=== PATIENT | female | born 1955 | race Caucasian/White ===

== ENCOUNTER → 2016-04-28 | Outpatient (CLI) | payer BC ==
--- NOTE | 2016-04-29 08:46 | MM ---
Reason for exam: screening (asymptomatic). Last mammogram was performed 1 year ago. History: Patient is postmenopausal. Family history of breast cancer in maternal cousin. Physical Findings: A clinical breast exam by your physician is recommended on an annual basis and results should be correlated with mammographic findings. MG Screening Mammo w CAD Bilateral CC and MLO view(s) were taken. Prior study comparison: April 29, 2015, bilateral MG screening mammo w CAD. February 26, 2014, bilateral MG screening mammo w CAD. The breast tissue is heterogeneously dense. This may lower the sensitivity of mammography. Focal asymmetry upper inner right breast, 6.3 cm from nipple. This finding is changed when compared with previous exams. ASSESSMENT: Incomplete: need additional imaging evaluation, BI-RAD 0 RECOMMENDATION: Special view mammogram of the right breast. If lesion persists on supplemental views, image directed ultrasound is recommended. [facility] will attempt to contact patient to return for supplemental views and ultrasound if indicated.
== END | disposition home or self-care (01) ==
LOC: RADMAMWWP 10:36
PROVIDERS: ATTEND Internal Medicine
DX: Z12.31 Encounter for screening mammogram for malignant neoplasm of breast (principal)

== ENCOUNTER → 2016-04-29 | Outpatient (CLI) | payer BC ==
--- NOTE | 2016-04-30 08:06 | MM ---
Reason for exam: additional evaluation requested from abnormal screening. Last mammogram was performed less than 1 month ago. History: Patient is postmenopausal. Family history of breast cancer in maternal cousin at age 50. Physical Findings: Nurse did not find any significant physical abnormalities on exam. MG 3D Work Up W/Cad RT LM, spot compression MLO, and spot compression CC view(s) were taken of the right breast. Prior study comparison: April 28, 2016, bilateral MG screening mammo w CAD. April 29, 2015, bilateral MG screening mammo w CAD. The breast tissue is heterogeneously dense. This may lower the sensitivity of mammography. No suspicious mass on 3D. No significant new findings when compared with previous films. These results were verbally communicated with the patient and result sheet given to the patient on 04/29/16. ASSESSMENT: Benign, BI-RAD 2 RECOMMENDATION: Return to routine screening mammogram schedule for both breasts.
== END | disposition home or self-care (01) ==
LOC: RADMAMWWP 13:59
PROVIDERS: ATTEND Internal Medicine
DX: R92.8 Other abnormal and inconclusive findings on diagnostic imaging of breast (principal)
CPT/HCPCS: G0206; G0279

== ENCOUNTER → 2018-09-27 | Outpatient (CLI) | payer BC ==
--- NOTE | 2018-09-28 11:46 | MM ---
Reason for exam: screening (asymptomatic). Last mammogram was performed 1 year and 4 months ago. History: Patient is postmenopausal. Family history of breast cancer in maternal cousin at age 50. Physical Findings: A clinical breast exam by your physician is recommended on an annual basis and results should be correlated with mammographic findings. MG Screening Mammo w CAD Bilateral CC and MLO view(s) were taken. Prior study comparison: June 01, 2017, bilateral MG screening mammo w CAD. April 29, 2016, right breast MG 3d work up w/cad RT. The breast tissue is heterogeneously dense. This may lower the sensitivity of mammography. Benign appearing bilateral calcifications. No suspicious abnormality. No significant changes when compared with prior studies. ASSESSMENT: Benign, BI-RAD 2 RECOMMENDATION: Routine screening mammogram of both breasts in 1 year.
== END | disposition home or self-care (01) ==
LOC: RADMAMWWP 09:38
PROVIDERS: ATTEND Internal Medicine
DX: Z12.31 Encounter for screening mammogram for malignant neoplasm of breast (principal)
CPT/HCPCS: 77067

== ENCOUNTER → 2019-10-03 | Outpatient (CLI) | payer BC ==
--- NOTE | 2019-10-04 11:59 | MM ---
Reason for exam: screening (asymptomatic). Last mammogram was performed 1 year ago. History: Patient is postmenopausal. Family history of breast cancer in maternal cousin at age 50. Physical Findings: A clinical breast exam by your physician is recommended on an annual basis and results should be correlated with mammographic findings. MG Screening Mammo w CAD Bilateral CC and MLO view(s) were taken. Prior study comparison: September 27, 2018, bilateral MG screening mammo w CAD. June 01, 2017, bilateral MG screening mammo w CAD. The breast tissue is heterogeneously dense. This may lower the sensitivity of mammography. No significant changes when compared with prior studies. ASSESSMENT: Benign, BI-RAD 2 RECOMMENDATION: Routine screening mammogram of both breasts in 1 year.
== END | disposition home or self-care (01) ==
LOC: RADMAMWWP 13:46
PROVIDERS: ATTEND Internal Medicine
DX: Z12.31 Encounter for screening mammogram for malignant neoplasm of breast (principal)
CPT/HCPCS: 77067

== ENCOUNTER → 2020-10-09 | Outpatient (CLI) | payer MEDICARE, BC ==
--- NOTE | 2020-10-10 11:22 | MM ---
Reason for exam: screening (asymptomatic). Last mammogram was performed 1 year ago. History: Patient is postmenopausal. Family history of breast cancer in maternal cousin at age 50. Physical Findings: A clinical breast exam by your physician is recommended on an annual basis and results should be correlated with mammographic findings. MG Screening Mammo w CAD Bilateral CC and MLO view(s) were taken. Prior study comparison: October 03, 2019, bilateral MG screening mammo w CAD. September 27, 2018, bilateral MG screening mammo w CAD. The breast tissue is heterogeneously dense. This may lower the sensitivity of mammography. Focal asymmetry inner lower right breast zone B. ASSESSMENT: Incomplete: need additional imaging evaluation, BI-RAD 0 RECOMMENDATION: Special view mammogram of the right breast. If lesion persists on supplemental views, image directed ultrasound is recommended. [facility] will attempt to contact patient to return for supplemental views and ultrasound if indicated.
== END | disposition home or self-care (01) ==
LOC: RADMAMWWP 14:38
PROVIDERS: ATTEND Internal Medicine
DX: Z12.31 Encounter for screening mammogram for malignant neoplasm of breast (principal)
CPT/HCPCS: 77067

== ENCOUNTER → 2020-10-14 | Outpatient (CLI) | payer MEDICARE, BC ==
--- NOTE | 2020-10-14 09:37 | MM ---
Reason for exam: additional evaluation requested from abnormal screening. Last mammogram was performed less than 1 month ago. History: Patient is postmenopausal. Family history of breast cancer in maternal cousin at age 50. Physical Findings: Nurse did not find any significant physical abnormalities on exam. MG 3D Work Up W/Cad RT CC and MLO view(s) were taken of the right breast. Prior study comparison: October 09, 2020, bilateral MG screening mammo w CAD. October 03, 2019, bilateral MG screening mammo w CAD. Upper inner quadrant right breast 6cm from nipple, 6mm nodular density. These results were verbally communicated with the patient and result sheet given to the patient on 10/14/20. ASSESSMENT: Incomplete: need additional imaging evaluation, BI-RAD 0 RECOMMENDATION: Ultrasound of the right breast.
--- NOTE | 2020-10-14 09:38 | USB ---
Reason for exam: additional evaluation requested from abnormal screening. History: Patient is postmenopausal. Family history of breast cancer in maternal cousin at age 50. US Breast Workup Limited RT Right limited breast ultrasound including focal area of concern, retroareolar and axilla demonstrates no cystic or solid lesion seen. These results were verbally communicated with the patient and result sheet given to the patient on 10/14/20. ASSESSMENT: Probably benign, BI-RAD 3 RECOMMENDATION: Follow-up diagnostic mammogram of the right breast in 6 months.
== END | disposition home or self-care (01) ==
LOC: RADMAMWWP 08:18
PROVIDERS: ATTEND Internal Medicine
DX: R92.8 Other abnormal and inconclusive findings on diagnostic imaging of breast (principal)
CPT/HCPCS: 77065; 76642; G0279; 77061

== ENCOUNTER → 2021-04-25 | Outpatient (CLI) | payer BC, MEDICARE ==
--- NOTE | 2021-04-25 10:43 | MM ---
Reason for exam: follow-up at short interval from prior study. Last mammogram was performed 6 months ago. History: Patient is postmenopausal. Family history of breast cancer in maternal cousin at age 50. Physical Findings: A clinical breast exam by your physician is recommended on an annual basis and results should be correlated with mammographic findings. MG 3D Diag Mammo W/Cad RT CC and MLO view(s) were taken of the right breast. Prior study comparison: October 14, 2020, right breast MG 3d work up w/cad RT. October 09, 2020, bilateral MG screening mammo w CAD. The breast tissue is heterogeneously dense. This may lower the sensitivity of mammography. There is no discrete abnormality including area of concern. These results were verbally communicated with the patient and result sheet given to the patient on 04/25/21. ASSESSMENT: Benign, BI-RAD 2 RECOMMENDATION: Follow-up diagnostic mammogram of both breasts in 1 year. Back on schedule for September 2021.
== END | disposition home or self-care (01) ==
LOC: RADMAMWWP 09:37
PROVIDERS: ATTEND Internal Medicine
DX: R92.8 Other abnormal and inconclusive findings on diagnostic imaging of breast (principal)
CPT/HCPCS: 77065; G0279; 77061

== ENCOUNTER → 2021-11-03 | Outpatient (CLI) | payer MEDICARE ==
--- NOTE | 2021-11-07 10:33 | MM ---
Reason for Exam: Follow-up at short interval from prior study. Last mammogram was performed 1 year(s) and 1 month(s) ago. Patient History: Menarche at age 12. First Full-Term at age 27. Postmenopausal. Maternal cousin had breast cancer, age 50. Risk Values: Shira 5 year model risk: 1.9%. NCI Lifetime model risk: 6.7%. Tissue Density: The breast tissue is heterogeneously dense. This may lower the sensitivity of mammography. Findings: Analyzed By CAD. Some scattered and regional small benign-appearing round calcifications bilaterally are redemonstrated. No suspicious new mass or distortion in either breast. Overall Assessment: Benign, BI-RAD 2 Management: Screening Mammogram of both breasts in 1 year. PACS downtime. Electronically signed and approved by: Nelson Meng M.D.
== END | disposition home or self-care (01) ==
LOC: RADMAMWWP 10:23
PROVIDERS: ATTEND Internal Medicine
DX: R92.8 Other abnormal and inconclusive findings on diagnostic imaging of breast (principal)
CPT/HCPCS: 77066; G0279; 77062

== ENCOUNTER 2022-01-17 09:45 | Observation (INO) | payer MEDICARE ==
--- NOTE | 2022-01-17 10:28 | ED ---
General Adult HPI - General Chief complaint: Neuro Symptoms/Deficit Stated complaint: Left side numbness Time Seen by Provider: 01/17/22 09:59 Source: patient Mode of arrival: wheelchair Limitations: no limitations - History of Present Illness Initial comments: Dictation was produced using [employer] dictation software. please excuse any grammatical, word or spelling errors. Chief Complaint: 66-year-old male presents to the emergency department for hand tingling History of Present Illness: Patient is 66-year-old female she has past medical history of hypertension. She states that yesterday she had several bouts of left lower facial numbness and left hand numbness. She also had some bouts of left upper extremity weakness. This morning she woke up and had another bout of facial symptoms and left upper extremity symptoms however that seemed to have resolved. At the bedside she only complains of tingling to her left hand. De nies any history of CVA. The ROS documented in this emergency department record has been reviewed and confirmed by me. Those systems with pertinent positive or negative responses have been documented in the HPI. All other systems are other negative and/or noncontributory. PHYSICAL EXAM: General Impression: Alert and oriented x3, not in acute distress HEENT: Normocephalic atraumatic, extra-ocular movements intact, pupils equal and reactive to light bilaterally, mucous membranes moist. Cardiovascular: Heart regular rate and rhythm Chest: Able to complete full sentences, no retractions, no tachypnea Abdomen: abdomen soft, non-tender, non-distended, no organomegaly Musculoskeletal: Pulses present and equal in all extremities, no peripheral edema Motor: no focal deficits noted Neurological: CN II-XII grossly intact, no focal motor or sensory deficits noted, NIH 0-1 Skin: Intact with no visualized rashes Psych: Normal affect and mood ED course: 66-year-old female presents with strokelike symptoms. Her symptoms are mild. Her NIH is 0-1. One being subjective paresthesias to the hand. However given that she does have associated left lower facial symptoms CVA is considered. Patient not a code stroke or TPA candidate due to her low NIH score. Risk benefits. Furthermore, patient has been expressing sputtering symptoms since yesterday. Vital Signs upon arrival are within acceptable limits. Chart review was performed Laboratory evaluation obtained. CBC, coag panel, metabolic panel is unremarkable. Computed tomography scan of the brain is unremarkable. Patient reevaluated bedside at 11:26 AM. Patient states that the sensory symptoms in her left hand are gone. She is currently asymptomatic. Patient be admitted with consultation to neurology for evaluation of transient ischemic attack. My EKG interpretation: Ventricular rate 666, sinus rhythm, TX interval 99, QS 97, QTc 438. No TX prolongation, no QTC prolongation, no ST or T-wave changes noted. Overall, this EKG is unremarkable Critical Care: yes Critical Care time: 33 - Related Data Allergies Allergy/AdvReac Type Severity Reaction Status Date / Time No Known Allergies Allergy Verified 01/17/22 09:54 Review of Systems ROS Statement: Those systems with pertinent positive or pertinent negative responses have been documented in the HPI. ROS Other: All systems not noted in ROS Statement are negative. Past Medical History Past Medical History: Hyperlipidemia, Hypertension History of Any Multi-Drug Resistant Organisms: None Reported Past Surgical History: Appendectomy Past Psychological History: No Psychological Hx Reported Smoking Status: Never smoker Past Alcohol Use History: Occasional Past Drug Use History: None Reported General Exam Limitations: no limitations Course Vital Signs 01/17/22 01/17/22 09:49 10:15 Temperature 98.4 F Pulse Rate 69 68 Respiratory 16 18 Rate Blood Pressure 145/73 170/90 O2 Sat by Pulse 100 98 Oximetry Medical Decision Making - Lab Data Result diagrams: 01/17/22 10:23 01/17/22 10:23 Lab Results 01/17/22 01/17/22 01/17/22 Range/Units 10:23 10:23 10:23 WBC 5.3 (3.8-10.6) k/uL RBC 4.66 (3.80-5.40) m/uL Hgb 13.7 (11.4-16.0) gm/dL Hct 38.1 (34.0-46.0) % MCV 81.7 (80.0-100.0) fL MCH 29.3 (25.0-35.0) pg MCHC 35.9 (31.0-37.0) g/dL RDW 12.9 (11.5-15.5) % Plt Count 297 (150-450) k/uL MPV 8.6 Neutrophils % 59 % Lymphocytes % 28 % Monocytes % 7 % Eosinophils % 2 % Basophils % 1 % Neutrophils # 3.2 (1.3-7.7) k/uL Lymphocytes # 1.5 (1.0-4.8) k/uL Monocytes # 0.4 (0-1.0) k/uL Eosinophils # 0.1 (0-0.7) k/uL Basophils # 0.1 (0-0.2) k/uL PT 10.7 (9.0-12.0) sec INR 1.0 (<1.2) APTT 25.7 (22.0-30.0) sec Sodium 139 (137-145) mmol/L Potassium 3.7 (3.5-5.1) mmol/L Chloride 106 (98-107) mmol/L Carbon Dioxide 24 (22-30) mmol/L Anion Gap 9 mmol/L BUN 15 (7-17) mg/dL Creatinine 0.67 (0.52-1.04) mg/dL Est GFR (CKD-EPI)AfAm >90 (>60 ml/min/1.73 sqM) Est GFR (CKD-EPI)NonAf >90 (>60 ml/min/1.73 sqM) Glucose 110 H (74-99) mg/dL Calcium 9.3 (8.4-10.2) mg/dL Magnesium 1.9 (1.6-2.3) mg/dL Total Bilirubin 1.0 (0.2-1.3) mg/dL AST 35 (14-36) U/L ALT 37 H (4-34) U/L Alkaline Phosphatase 93 (38-126) U/L Total Protein 7.4 (6.3-8.2) g/dL Albumin 4.7 (3.5-5.0) g/dL Disposition Clinical Impression: TIA (transient ischemic attack) Disposition: ADMITTED IP TO THIS HOSP Condition: Fair Referrals: Marine Schultz MD [Primary Care Provider] - 1-2 days Decision Time: 11:26
[2022-01-17 10:34] LABS: Basophils # (A) 0.1 k/uL (0-0.2); Basophils % (A) 1 %; Eosinophils # (A) 0.1 k/uL (0-0.7); Eosinophils % (A) 2 %; HCT 38.1 % (34.0-46.0); HGB 13.7 gm/dL (11.4-16.0); Lymphocytes # (A) 1.5 k/uL (1.0-4.8); Lymphocytes % (A) 28 %; MCH 29.3 pg (25.0-35.0); MCHC 35.9 g/dL (31.0-37.0); MCV 81.7 fL (80.0-100.0); Mean Platelet Volume 8.6; Monocytes # (A) 0.4 k/uL (0-1.0); Monocytes % (A) 7 %; Neutrophils # (A) 3.2 k/uL (1.3-7.7); Neutrophils % (A) 59 %; Platelet Count 297 k/uL (150-450); RBC 4.66 m/uL (3.80-5.40); RDW 12.9 % (11.5-15.5); WBC 5.3 k/uL (3.8-10.6)
[2022-01-17 10:44] LABS: ALT 37 U/L (4-34); AST 35 U/L (14-36); African American GFR (CKD) >90 (>60 ml/min/1.73 sqM); Albumin 4.7 g/dL (3.5-5.0); Alkaline Phosphatase 93 U/L (38-126); Anion Gap 9 mmol/L; Blood Urea Nitrogen 15 mg/dL (7-17); Calcium 9.3 mg/dL (8.4-10.2); Carbon Dioxide 24 mmol/L (22-30); Chloride 106 mmol/L (98-107); Glucose 110 mg/dL (74-99); Magnesium 1.9 mg/dL (1.6-2.3); Non-African American GFR(CKD) >90 (>60 ml/min/1.73 sqM); Potassium 3.7 mmol/L (3.5-5.1); Sodium 139 mmol/L (137-145); Total Protein 7.4 g/dL (6.3-8.2)
[2022-01-17 10:46] LABS: Partial Thromboplastin Time 25.7 sec (22.0-30.0); Prothrombin Time 10.7 sec (9.0-12.0)
--- NOTE | 2022-01-17 10:57 | CT ---
EXAMINATION TYPE: CT brain wo con DATE OF EXAM: 01/17/2022 COMPARISON: None HISTORY: left sided weakness CT DLP: 1109.8 mGycm Automated exposure control for dose reduction was used. FINDINGS: The ventricles, basal cisterns and sulci over the convexities are within normal limits and there is n o mass effect or shift of midline structures. There is no abnormal density throughout the brain parenchyma and there is no acute intra or extra-axi al hemorrhage. The posterior fossa including the brainstem, fourth ventricle and cerebellar pontine angles are gross ly normal. The intraorbital contents appear normal and symmetric. Visualized paranasal sinuses and mastoid air cells are well aerated and the calvarium is intact. IMPRESSION: No acute bleed or mass effect.
[2022-01-17] MEDS ORDERED: ASPIRIN 81 MG PO STA (11:24)
[2022-01-17] MEDS ORDERED: NALOXONE 0.4 MG/ML 1 ML VIAL IV PRN ×2 (11:25→12:21)
[2022-01-17] MEDS: SODIUM CHLORIDE 0.9% 1,000 ML IV SCH (11:31)
[2022-01-17] MEDS ORDERED: MAG HYDROX/AL HYDROX/SIMETH 30 ML CUP PO PRN (12:21)
[2022-01-17] MEDS ORDERED: ACETAMINOPHEN TAB 325 MG TAB PO PRN (12:21)
--- NOTE | 2022-01-17 12:29 | P.HPIM ---
History of Present Illness H&P Date: 01/17/22 History of present illness; patient is a 66-year-old lady with past medical history significant for hyperlipidemia, hypertension presented to the ER because of left upper extremity weakness. Apparently patient was all right yesterday when while she was putting up Jonelle lights, she noticed left arm numbness and left side of her face getting numb. This lasted for a short time but it reoccurred 3 more times afterwards. Patient did not notice any slurred speech or any droop of her face. This morning while patient was cleaning around the house, she once again noticed left side of her face getting numb but this time it was accompanied by weakness of left upper extremity. Because of that patient became concerned and she came to the ER. By the time she came to the ER left side extremity weakness had resolved. CT brain was negative for acute stroke. Patient will be admitted for further evaluation and treatment REVIEW OF SYSTEMS: CONSTITUTIONAL: No fever, no malaise, no fatigue. HEENT: No recent visual problems or hearing problems. Denied any sore throat. CARDIOVASCULAR: No chest pain, orthopnea, PND, no palpitations, no syncope. PULMONARY: No shortness of breath, no cough, no hemoptysis. GASTROINTESTINAL: No diarrhea, no nausea, no vomiting, no abdominal pain. NEUROLOGICAL: No headaches, no weakness, no numbness. HEMATOLOGICAL: Denies any bleeding or petechiae. GENITOURINARY: Denies any burning micturition, frequency, or urgency. MUSCULOSKELETAL/RHEUMATOLOGICAL: Denies any joint pain, swelling, or any muscle pain. ENDOCRINE: Denies any polyuria or polydipsia. The rest of the 14-point review of systems is negative. PHYSICAL EXAMINATION: GENERAL: The patient is alert and oriented x3, not in any acute distress. Well developed, well nourished. HEENT: Pupils are round and equally reacting to light. EOMI. No scleral icterus. No conjunctival pallor. Normocephalic, atraumatic. No pharyngeal erythema. No thyromegaly. CARDIOVASCULAR: S1 and S2 present. No murmurs, rubs, or gallops. PULMONARY: Chest is clear to auscultation, no wheezing or crackles. ABDOMEN: Soft, nontender, nondistended, normoactive bowel sounds. No palpable organomegaly. MUSCULOSKELETAL: No joint swelling or deformity. EXTREMITIES: No cyanosis, clubbing, or pedal edema. NEUROLOGICAL: Gross neurological examination did not reveal any focal deficits. Cranial nerves II through XII intact, muscle strength 5 over 5 in all extremities. SKIN: No rashes. Assessment and plan TIA Hypertension Hyperlipidemia Plan; Monitor vital signs Monitor CBC Continue aspirin Lipitor Ordered ultrasound of carotids Ordered 2-D echo Consult neurology Resume home meds DVT prophylaxis: Past Medical History Past Medical History: Hyperlipidemia, Hypertension History of Any Multi-Drug Resistant Organisms: None Reported Past Surgical History: Appendectomy Past Psychological History: No Psychological Hx Reported Smoking Status: Never smoker Past Alcohol Use History: Occasional Past Drug Use History: None Reported Medications and Allergies Allergies Allergy/AdvReac Type Severity Reaction Status Date / Time No Known Allergies Allergy Verified 01/17/22 09:54 Physical Exam Vitals: Vital Signs Temp Pulse Resp BP Pulse Ox 01/17/22 10:15 68 18 170/90 98 01/17/22 09:49 98.4 F 69 16 145/73 100 Intake and Output 01/16/22 01/17/22 01/17/22 22:59 06:59 14:59 Other: Weight 82.554 kg Results CBC & Chem 7: 01/17/22 10:23 01/17/22 10:23 Labs: Abnormal Lab Results - Last 24 Hours (Table) 01/17/22 Range/Units 10:23 Glucose 110 H (74-99) mg/dL ALT 37 H (4-34) U/L
--- NOTE | 2022-01-17 13:50 | US ---
EXAMINATION TYPE: US carotid duplex BILAT DATE OF EXAM: 01/17/2022 COMPARISON: NONE CLINICAL HISTORY: Left hand numbness. Pt states transient numbness and weakness left side TECHNIQUE: Carotid duplex ultrasound examination. Indirect Doppler criteria was utilized. FINDINGS: EXAM MEASUREMENTS: RIGHT: Peak Systolic Velocity (PSV) cm/sec ----- Right CCA: 76.8 ----- Right ICA: 112.9 ----- Right ECA: 75.7 ICA/CCA ratio: 1.5 RIGHT: End Diastole cm/sec ----- Right CCA: 14.2 ----- Right ICA: 27.3 ----- Right ECA: 8.7 LEFT: Peak Systolic Velocity (PSV) cm/sec ----- Left CCA: 89.3 ----- Left ICA: 86.7 ----- Left ECA: 77.8 ICA/CCA ratio: 1.0 LEFT: End Diastole cm/sec ----- Left CCA: 15.9 ----- Left ICA: 26.3 ----- Left ECA: 10.2 VERTEBRALS (direction of flow): Right Vertebral: Antegrade Left Vertebral: Antegrade Rhythm: Normal IMPRESSION: 1. No hemodynamically significant stenosis based on Doppler waveform analysis. 2. Mild scattered plaques within the common and internal carotid arteries bilaterally. Criteria for Assigning % of Stenosis / Diameter reduction (Estimation based on the indirect measurements of the internal carotid artery velocities (ICA PSV). 1. Normal (no stenosis)=ICA PSV < 125 cm/s: ratio < 2.0: ICA EDV<40 cm/s. 2. Less than 50% stenosis=ICA PSV < 125 cm/s: ratio < 2.0: ICA EDV<40 cm/s. 3. 50 to 69% stenosis=ICA PSV of 125 to 230 cm/s: ration 2.0 ? 4.0: ICA EDV 40-100 cm/s. 4. Greater than 70% stenosis to near occlusion= ICA PSV > 230 cm/s: ratio > 4.0: ICA EDV > 100 cm/s. 5. Near occlusion= ICA PSV velocities may be low or undetectable: variable ratio and ICA EDV. 6. Total occlusion=unable to detect flow.
--- NOTE | 2022-01-17 17:28 | P.CNNES ---
History of Present Illness Consult date: 01/17/22 Requesting physician: Quang Lorenz Reason for Consult: TIA History of Present Illness: Patient is a 66-year-old left-handed female with history of hypertension, came to the hospital this morning at 9:45 AM for possible TIA. Patient states that her symptoms started yesterday, when she was decorating Jonelle tree at around 11 AM, when she suddenly felt warm sensation through the upper body and then she noticed numbness of the left perioral region and left hand. It lasted for about 30 seconds. Within the next couple hours, the symptoms reoccurred 2 more times with similar distribution and duration. However for the rest of her day, she felt some warmth sensation in the left lower facial region rest of the day. This morning she woke up and was fine. At 8:30 AM, she was putting Jonelle decoration when she had similar sensation involving the left facial region, was not as strong, but she also felt her left arm was feeling funny, weak and fingertips of the left hand felt tingly. She got concerned and decided to come to the ER. She denies any neck pain, no slurred speechfacial droop or any problem with the balance. Her symptoms have now completely resolved. Patient's vital signs on arrival blood pressure 145/73, pulse rate 69 and temperature 98.4. Blood test shows normal CBC, PT/PTT, normal CMP. ALT is mildly elevated 37. CT head showed no acute process. I personally reviewed CT head, agree with the findings. EKG shows normal sinus rhythm. Patient has history of hypertension for about 20 years. She denies any diabetes, tobacco use. She drinks alcohol very occasionally. Patient states that she was taking aspirin daily for 20 years, but stopped taking it in May 2021 after discussion with her contract graphic designer. Patient denies any previous history of strokes TIA. She does follow up with Dr. Andrade contract graphic designer. Review of Systems Constitutional: Denies chills, Denies fever Eyes: denies blurred vision, denies pain Ears, nose, mouth and throat: Denies headache, Denies sore throat Cardiovascular: Denies chest pain, Denies shortness of breath Respiratory: Denies cough Gastrointestinal: Denies abdominal pain, Denies diarrhea, Denies nausea, Denies vomiting Genitourinary: Denies dysuria, Denies hematuria Musculoskeletal: Denies myalgias Integumentary: Denies pruritus, Denies rash Neurological: Reports as per HPI Psychiatric: Denies anxiety, Denies depression Endocrine: Denies fatigue, Denies weight change Hematologic/Lymphatic: Denies easy bruising Allergic/Immunologic: Denies persistent infections Past Medical History Past Medical History: Hyperlipidemia, Hypertension History of Any Multi-Drug Resistant Organisms: None Reported Past Surgical History: Appendectomy Past Psychological History: No Psychological Hx Reported Smoking Status: Never smoker Past Alcohol Use History: Occasional Past Drug Use History: None Reported Medications and Allergies Home Medications Medication Instructions Recorded Confirmed Type Losartan Potassium 100 mg PO HS 01/17/22 01/17/22 History Metoprolol Tartrate [Lopressor] 25 mg PO DAILY 01/17/22 01/17/22 History Rosuvastatin [Crestor] 10 mg PO HS 01/17/22 01/17/22 History amLODIPine [Norvasc] 5 mg PO BID 01/17/22 01/17/22 History hydroCHLOROthiazide [Hydrodiuril] 25 mg PO DAILY 01/17/22 01/17/22 History Allergies Allergy/AdvReac Type Severity Reaction Status Date / Time No Known Allergies Allergy Verified 01/17/22 13:44 Physical Examination - Vital Signs Vital Signs: Vital Signs Temp Pulse Resp BP Pulse Ox 01/17/22 15:00 67 16 134/78 97 01/17/22 10:15 68 18 170/90 98 01/17/22 09:49 98.4 F 69 16 145/73 100 Intake and Output 01/17/22 01/17/22 01/17/22 06:59 14:59 22:59 Other: Weight 82.554 kg Patient is an elderly female, appears younger than her stated age. Patient is in no distress. Patient is alert awake oriented to time place and person. Speech and language functions are normal. Patient can name and repeat very well. No aphasia or dysarthria. Attention, concentration and fund of knowledge is adequate. On cranial nerve examination, pupils are equal, round and reacting to light, visual kenney are full on confrontation, with no neglect on double simultaneous stimulation. Extraocular muscles are intact with no nystagmus. Face is symmetric, tongue protrudes to the midline. Palatal elevation and sensation normal, hearing and shoulder shrug normal, facial sensation normal. On muscle strength testing, there is no pronator drift and the strength is normal in arms and legs distally and proximally. Deep tendon reflexes are symmetric 1+ and plantars downgoing bilaterally. Sensory to touch is equal with no neglect on double simultaneous stimulation. Cerebellar function showed no ataxia for [id number] testing. No dysdiadochokinesia. No ataxia for zbfy-vs-yaow testing on either side. Tone and bulk of muscles normal. Gait deferred.. On general examination, there is no carotid bruit or murmur, S1-S2 audible. Chest is clear on consultation. Abdomen is soft nontender. No organomegaly, bowel sounds present. Peripheral pulses are present. No edema. Results - Laboratory Findings CBC and BMP: 01/17/22 10:23 01/17/22 10:23 Abnormal Lab Findings: Abnormal Labs 01/17/22 10:23 Glucose 110 H ALT 37 H Assessment and Plan Assessment: * Recurrent TIA, manifesting with transient left perioral numbness, and left arm numbness. Mechanism likely due to small vessel disease. * Hypertension, recently worse * Hyperlipidemia Plan: * Patient's current neurological examination is completely nonfocal. Her s ymptoms have resolved. Current NIH stroke scale is 0. Her ABCD2 score is 5 (1,1,2,1,0), which is a moderate risk. * Suggest Dual antiplatelet medication including aspirin 81 mg and Plavix 75 mg for 21 days, then stop Plavix and continue aspirin indefinitely. * Lipid panel. Patient takes Crestor 10 mg at bedtime. * Suggest 2-D echo and 30 day event monitor. Patient wants to go home. Preferable to have been done as an inpatient. However if she wants to go home, then these may be scheduled as an outpatient through her contract graphic designer Dr. Andrade. * Continue telemetry monitoring overnight. * MRI of the brain will not change the management. * Thank you for the consult.
[2022-01-17] MEDS: amLODIPine 5 MG TAB PO SCH (20:55)
[2022-01-17] MEDS ORDERED: LOSARTAN 50 MG TAB PO SCH (21:00)
[2022-01-17] MEDS ORDERED: MELATONIN 3 MG TABLET PO SCH (21:00)
[2022-01-17] MEDS ORDERED: ATORVASTATIN 20 MG TAB PO SCH (21:00)
[2022-01-18 08:11] VITALS: BP 147/84; PULSE 69; RESP 15; TEMP 98
[2022-01-18] MEDS ORDERED: CLOPIDOGREL 75 MG TAB PO SCH (09:00)
[2022-01-18] MEDS ORDERED: ASPIRIN 81 MG PO SCH (09:30)
[2022-01-18] MEDS: amLODIPine 5 MG TAB PO SCH (09:35)
--- NOTE | 2022-01-18 10:49 | P.DS ---
Providers Date of admission: 01/17/22 11:25 Expected date of discharge: 01/18/22 Attending physician: Zheng Craven MD Consults: 01/17/22 11:25 Consult Physician Routine Consulting Provider: aSde Mercado Consult Reason/Comments: tia Do you want consulting provider notified?: Yes Primary care physician: Marine Schultz Hospital Course: Discharge diagnoses; Recurrent TIA, manifesting with transient left perioral numbness, and left arm numbness. Mechanism likely due to small vessel disease. Hypertension Hyperlipidemia Hospital course; patient is a 66-year-old lady with past medical history significant for hyperlipidemia, hypertension presented to the ER because of left upper extremity weakness. Apparently patient was all right yesterday when while she was putting up Jonelle lights, she noticed left arm numbness and left side of her face getting numb. This lasted for a short time but it reoccurred 3 more times afterwards. Patient did not notice any slurred speech or any droop of her face. This morning while patient was cleaning around the house, she once again noticed left side of her face getting numb but this time it was accompanied by weakness of left upper extremity. Because of that patient became concerned and she came to the ER. By the time she came to the ER left side extremity weakness had resolved. CT brain was negative for acute stroke. Patient will be admitted for further evaluation and treatment. Patient was admitted to hospitalist service, neurology evaluated the patient recommended keeping patient on aspirin and Plavix for 21 days followed by aspirin 81 mg daily indefinitely." Ultrasound of carotids was normal. Patient wanted the 2-D echo to be done outpatient. Patient be discharged in stable condition. PHYSICAL EXAMINATION: GENERAL: The patient is alert and oriented x3, not in any acute distress. Well developed, well nourished. HEENT: Pupils are round and equally reacting to light. EOMI. No scleral icterus. No conjunctival pallor. Normocephalic, atraumatic. No pharyngeal erythema. No thyromegaly. CARDIOVASCULAR: S1 and S2 present. No murmurs, rubs, or gallops. PULMONARY: Chest is clear to auscultation, no wheezing or crackles. ABDOMEN: Soft, nontender, nondistended, normoactive bowel sounds. No palpable organomegaly. MUSCULOSKELETAL: No joint swelling or deformity. EXTREMITIES: No cyanosis, clubbing, or pedal edema. NEUROLOGICAL: Gross neurological examination did not reveal any focal deficits. SKIN: No rashes. Patient Condition at Discharge: Fair Plan - Discharge Summary New Discharge Prescriptions: New Clopidogrel [Plavix] 75 mg PO DAILY #21 tab Aspirin 81 mg PO DAILY #30 tab Continue Rosuvastatin [Crestor] 10 mg PO HS hydroCHLOROthiazide [Hydrodiuril] 25 mg PO DAILY amLODIPine [Norvasc] 5 mg PO BID Metoprolol Tartrate [Lopressor] 25 mg PO DAILY Losartan Potassium 100 mg PO HS Discharge Medication List Losartan Potassium 100 mg PO HS 01/17/22 [History] Metoprolol Tartrate [Lopressor] 25 mg PO DAILY 01/17/22 [History] Rosuvastatin [Crestor] 10 mg PO HS 01/17/22 [History] amLODIPine [Norvasc] 5 mg PO BID 01/17/22 [History] hydroCHLOROthiazide [Hydrodiuril] 25 mg PO DAILY 01/17/22 [History] Aspirin 81 mg PO DAILY #30 tab 01/18/22 [Rx] Clopidogrel [Plavix] 75 mg PO DAILY #21 tab 01/18/22 [Rx] Follow up Appointment(s)/Referral(s): Marine Schultz MD [Primary Care Provider] - 1-2 days Discharge Disposition: HOME SELF-CARE
[2022-01-18 11:08] LABS: Basophils # (A) 0.04 X 10*3/uL (0.00-0.10); Basophils % (A) 0.7 %; Eosinophils # (A) 0.09 X 10*3/uL (0.04-0.35); Eosinophils % (A) 1.5 %; HCT 38.9 % (37.2-46.3); HGB 13.2 g/dL (12.0-15.0); Immature Grans, Automated 0.5 %; Lymphocytes # (A) 2.05 X 10*3/uL (0.90-5.00); Lymphocytes % (A) 33.6 %; MCH 28.4 pg (27.0-32.0); MCHC 33.9 g/dL (32.0-37.0); MCV 83.8 fL (80.0-97.0); Mean Platelet Volume 9.8 fL (9.5-12.2); Monocytes # (A) 0.64 X 10*3/uL (0.20-1.00); Monocytes % (A) 10.5 %; NRBC Per 100 WBC 0 /100 WBCS (0.0-0.0); Neutrophils # (A) 3.26 X 10*3/uL (1.80-7.70); Neutrophils % (A) 53.2 %; Platelet Count 331 X 10*3/uL (140-440); RBC 4.64 X 10*6/uL (4.10-5.20); RDW 12.8 % (11.5-14.5); WBC 6.11 X 10*3/uL (4.50-10.00)
[2022-01-18 11:15] LABS: Blood Urea Nitrogen 15.6 mg/dL (9.0-27.0); Calcium 9.1 mg/dL (8.7-10.3); Carbon Dioxide 25.1 mmol/L (20.0-27.5); Chloride 104 mmol/L (96-109); Chol/HDL Ratio 2.99 Ratio; Glucose 102 mg/dL (70-110); LDL Cholesterol,Calculated 75.9 mg/dL (0.0-131.0); Non-African American GFR(CKD) 76.8 (60.0-200.0); Potassium 3.8 mmol/L (3.5-5.5); Sodium 141 mmol/L (135-145); VLDL Calculation 19.92 mg/dL (5.00-40.00)
[2022-01-18] MEDS: SODIUM CHLORIDE 0.9% 1,000 ML IV SCH (11:41)
== END 2022-01-18 12:51 | disposition home or self-care (01) ==
LOC: EC 09:45 → 6NMEDSUR 11:25
PROVIDERS: ADMIT Internal Medicine; ATTEND Internal Medicine
DX: G45.9 Transient cerebral ischemic attack, unspecified (principal); I10 Essential (primary) hypertension; E78.5 Hyperlipidemia, unspecified; Z79.899 Other long term (current) drug therapy
CPT/HCPCS: 96360; 96361; 99285; 36415; 93005; 80061; 80053; 80048; 83735; 85025 ×2; 85610; 85730; 83036; 93880; 70450; G0378 ×3

== ENCOUNTER → 2022-11-04 | Outpatient (CLI) | payer MEDICARE ==
--- NOTE | 2022-11-05 08:47 | MM ---
Reason for Exam: Screening (asymptomatic). Last screening mammogram was performed 12 month(s) ago. Patient History: Menarche at age 12. First Full-Term at age 27. Postmenopausal. Maternal cousin had breast cancer, age 50. Risk Values: Shira 5 year model risk: 1.9%. NCI Lifetime model risk: 6.4%. Prior Study Comparison: 10/14/2020 Right Diagnostic Mammogram, [facility]. 04/25/2021 Right Diagnostic Mammogram, [facility]. 11/03/2021 Bilateral MG 3D diag mammo w/cad [facility], [facility]. Tissue Density: The breast tissue is heterogeneously dense. This may lower the sensitivity of mammography. Findings: Analyzed By CAD. There is no suspicious group of microcalcifications or new suspicious mass in either breast. Overall Assessment: Benign, BI-RAD 2 Management: Screening Mammogram of both breasts in 1 year. . Patient should continue monthly self-breast exams. A clinical breast exam by your physician is recommended on an annual basis. This exam should not preclude additional follow-up of suspicious palpable abnormalities. Note on Shira scores and lifetime risk: 1. A Shira score greater than 3% is considered moderate risk. If this is the case, consider specialist referral to assess eligibility for a risk reducing agent. 2. If overall lifetime risk for the development of breast cancer is 20% or higher, the patient may qualify for future screening with alternating mammogram and breast MRI. Electronically signed and approved by: Adam Dimas M.D. Radiologis
== END | disposition home or self-care (01) ==
LOC: RADMAMWWP 07:56
PROVIDERS: ATTEND Internal Medicine
DX: Z12.31 Encounter for screening mammogram for malignant neoplasm of breast (principal); Z78.0 Asymptomatic menopausal state; Z80.3 Family history of malignant neoplasm of breast
CPT/HCPCS: 77063; 77067

== ENCOUNTER → 2022-11-30 | Outpatient (CLI) | payer MEDICARE ==
--- NOTE | 2022-12-02 09:13 | MR ---
EXAMINATION TYPE: MR brain wo/w con DATE OF EXAM: 11/30/2022 COMPARISON: CT 01/17/2022 HISTORY: 67-year-old female G45.9, Transient cerebral ischemic attack. TECHNIQUE: Multiplanar, multisequence images of the brain and brainstem were acquired before and aft er administration of 8 mL IV Gadavist. Diffusion weighted imaging is performed. FINDINGS: No evidence for acute infarction, hemorrhage, mass, mass effect, midline shift, herniation, effacemen t of basal cisterns, or extra-axial fluid collection. The ventricles and sulci are age-appropriate. Major intracranial flow voids are intact. Dominant left vertebral artery. T2/FLAIR weighted sequences show mild scattered burden of bright signal foci in the periventricular a nd deep white matter regions of both cerebral hemispheres. Numbering approximately 5-10 in the left c erebral hemisphere in 10-15 in the right cerebral hemisphere. Midline structures demonstrate normal morphology. The craniocervical junction is normal. Post contrast images demonstrate no evidence of pathologic enhancement. Dural venous sinuses are pat ent. Trace mucosal thickening right maxillary sinus and ethmoid air cells. Globes are intact. IMPRESSION: Nonspecific chronic T2 bright white matter change with mild overall burden, most likely relating to c hronic small vessel ischemic disease. No enhancing lesions or acute intracranial abnormality seen.
== END | disposition home or self-care (01) ==
LOC: RADMRIMAIN 07:22
PROVIDERS: ATTEND Internal Medicine
DX: G45.9 Transient cerebral ischemic attack, unspecified (principal); R90.82 White matter disease, unspecified
CPT/HCPCS: 70553; A9585

== ENCOUNTER → 2023-11-08 | Outpatient (CLI) | payer MEDICARE ==
--- NOTE | 2023-11-09 09:20 | MM ---
Reason for Exam: Screening (asymptomatic). Last screening mammogram was performed 12 month(s) ago. Patient History: Menarche at age 12. First Full-Term at age 27. Postmenopausal. Maternal cousin had breast cancer, age 50. Risk Values: Shira 5 year model risk: 1.9%. NCI Lifetime model risk: 6.2%. Prior Study Comparison: 04/25/2021 Right Diagnostic Mammogram, [facility]. 11/03/2021 Bilateral MG 3D diag mammo w/cad [facility], [facility]. 11/04/2022 Bilateral MG 3D screening mammo w/cad, [facility]. Tissue Density: The breasts are heterogeneously dense, which may obscure small masses. Findings: Analyzed By CAD. The pattern is symmetrical. Scattered benign punctate calcifications are present bilaterally. No suspicious groups of microcalcifications, spiculated or lobular masses, architectural distortion or other secondary signs of malignancy are mammographically apparent. Overall Assessment: Benign, BI-RAD 2 Management: Screening Mammogram of both breasts in 1 year. A negative mammogram report should not preclude additional follow up of suspicious palpable abnormalities. Patient should continue monthly self breast exam. A clinical breast exam by your physician is recommended on an annual basis and results should be correlated with mammographic findings. Note on Shira scores and lifetime risk: 1. A Shira score greater than 3% is considered moderate risk. If this is the case, consider specialist referral to assess eligibility for a risk reducing agent. 2. If overall lifetime risk for the development of breast cancer is 20% or higher, the patient may qualify for future screening with alternating mammogram and breast MRI. [facility], , 11/09/2023 9:17 AM. Electronically signed and approved by: Sean Miranda D.O. Radiologis
== END | disposition home or self-care (01) ==
LOC: RADMAMWWP 09:18
PROVIDERS: ATTEND Internal Medicine
DX: Z12.31 Encounter for screening mammogram for malignant neoplasm of breast
CPT/HCPCS: 77063; 77067